=== PATIENT | male | born 2005 | race Caucasian/White ===

== ENCOUNTER 2024-04-22 14:33 | Emergency (ER) | payer SELFPAY ==
[2024-04-22 14:34] VITALS: BP 144/85; PULSE 104; RESP 16; TEMP 36.1; O2SAT 100; BMI 25.1
--- NOTE | 2024-04-22 14:59 | EX.ED.UPPERE ---
HPI History of Present Illness HPI Narrative: 18-year-old male fell yesterday off a ladder about 2 feet injuring his left shoulder and left upper anterior chest wall. No LOC. No head injury. No neck or back injury. Denies other complaints. Today was seen at the chiropractor and referred to the emergency department. Chief Complaint: Dislocation Informant: patient and family Occured/Mechanism Mechanism/Context: Yes injury and Yes blunt trauma Onset/Context/Timing Onset: Yesterday Context: Sudden Onset Timing: Continuous Quality of Pain: Dull and Aching Location: Left shoulder and left upper chest wall. Current Severity: Moderate Maximum Severity: Moderate Associated Symptoms Associated Symptoms: Negative for Parasthesia, Weakness or Loss of Funtion Narrative Narrative: Healthy 18-year-old male no seen past medical history. [id number]. Was on a ladder yesterday fell injuring his left shoulder and left upper rib cage. Was seen at a chiropractor and referred to the ER. Prior similar symptoms: No Recent Illness/Hospitalization: No PFSH PFSH Medical History no medical history no medical history Home Medications ?Medication ?Instructions ?Recorded ?Last Taken ?Type NK 04/22/24 Unknown History Allergy/AdvReac Type Severity Reaction Status Date / Time No Known Allergies Allergy Verified 04/22/24 14:34 Surgical History (Updated 04/22/24 @ 15:05 by Lisbeth Duarte) History of appendectomy ROS ROS ED ROS Narrative Denies recent illness. Constitutional Constitutional ED: Denies chills or fever(s) Eyes Eyes: Denies blurry vision ENT ENT ED: Denies ear pain Cardiovascular Cardiovascular: Denies chest pain Respiratory/Chest Respiratory/Chest: Denies cough or dyspnea Gastrointestinal Gastrointestinal: Denies abdominal pain Genitourinary Genitourinary ED: Denies dysuria or hematuria Musculoskeletal Musculoskeletal: Denies back pain or myalgias Integumentary Denies abscess or Abrasions Neurologic Neurologic: Denies headache(s) Psychiatric Psychiatric: Denies anxiety Endocrine Endocrinology: Denies cold intolerance Hematologic/Lymphatic Hematologic/Lymphatic: Denies easy bleeding, easy bruising or lymphadenopathy Allergic/Immunologic Allergic/Immunologic ED: Denies mouth swelling, tongue swelling or urticaria EXAM Physical Exam Narrative Exam Narrative: 18-year-old male vital signs stable afebrile. No acute distress. Sitting upright in bed. Family at bedside. H EENT exam pupils round react light. No facial trauma. No scalp or head trauma. Nontender no hematoma. Neck C-spine nontender. Trachea midline. Normal range of motion. Back and spine nontender. No bruising. Lungs clear to auscultation bilaterally. Heart regular rhythm no murmur. Rate about 100. Left upper anterior chest wall tenderness with clavicular tenderness and left shoulder tenderness. No subcu air. No bruising. No bony crepitus. Right chest wall and right collarbone completely nontender right shoulder normal range of motion. Abdomen soft nontender. No peritoneal signs. No bruising. Pelvic girdle intact. Right upper extremity both lower extremities are nontender normal range of motion. No deformity. Left shoulder mild tenderness. However he has full flexion extension of left shoulder internal and external rotation. He can lift his left arm over his head. Normal inspector returned materials strength. Normal radial pulse. Hand, wrist, forearm and elbow are all completely nontender. Distal humerus is nontender. Neurologically is awake and alert. GCS of 15. Const Vital Signs: 04/22/24 14:34 Temperature 97 F L Temperature Source Temporal Pulse Rate 104 H Respiratory Rate 16 Blood Pressure 144/85 H Blood Pressure Mean 104 Pulse Ox 100 Oxygen Delivery Method Room Air Positive well nourished and well developed; Negative for obese, cachectic, contractures or unkempt General Appearance ED: well developed and NAD; Negative for unkempt, cachectic, contractures, cyanotic or diaphoretic Nutritional Appearance: Negative for cachectic or obese HEENT Reports moist mucous membranes normocephalic and atraumatic; Negative for trauma or tenderness Eyes PERRL and EOMs intact bilaterally Neck full ROM and supple General: Negative for tenderness Lymph Lymphatic: Negative for other Chest Wall inspection of chest normal; Negative for palpation of chest normal Chest Narrative: Tender left chest wall and mild tenderness to the proximal collarbone. Resp normal respiratory effort and clear to auscultation bilaterally Auscultation: Negative for rales, rhonchi, wheezes, diminished lung sounds or other Cardio regular rate, regular rhythm, S1 normal heart sound, S2 normal heart sound and no murmurs Rate: Negative for bradycardia or tachycardic Rhythm: Negative for abnormal rhythm GI non-tender, non-distended and no masses Inspection: Negative for abdominal distention Auscultation: normoactive bowel sounds Palpation: soft; Negative for tender, guarding or rebound tenderness present Back/Spine no CVA tenderness General Back: Negative for CVA tenderness Cervical Spine: Negative for cervical spine tenderness Thoracic Spine / Upper Back: Negative for thoracic spinal tenderness Lumbar Spine / Lower Back: Negative for lumbar spinal tenderness Extremity full ROM; Negative for normal to inspection Extremity Narrative: Mild tenderness left shoulder. No deformity. No swelling. Normal range of motion. Normal internal/external rotation. Can lift his left hand over his shoulder. Over his head. 5/5 inspector returned materials strength. Hand and wrist nontender. Forearm nontender. Distal humerus and elbow nontender. Left hand neurovascularly intact with touch sensation. General Extremety ED: Negative for edema General Extremity: Negative for edema Neuro oriented x3, CN's II-XII intact bilaterally, moves all extremities, no focal motor deficits and no sensory deficits noted Sensorium / Orientation: alert, oriented to person, oriented to place and oriented to time; Negative for orientation impaired, lethargic or stuporous Motor Exam: strength 5/5 throughout Psych mental status grossly normal Appearance: Negative for unkempt Attitude: No agitated Mood & Affect: Negative for depressed, anxious or tearful Skin General Skin Exam: Negative for petechiae Lesions: no lesions Rashes: no rashes Trauma: no lacerations or abrasions; Negative for abrasion, laceration or puncture MDM MDM MDM Narrative Medical decision making narrative: 18-year-old male fell yesterday from a ladder 2 feet complaining of left shoulder and collarbone discomfort. Left shoulder and chest x-ray will be obtained. He was offered but did not not want a thing for pain. He did bring x-rays with him from the chiropractor which we will load and look at. Repeat exam at 4:10 PM. Patient doing well. He has discomfort in the proximal clavicle medially but there is no signs of dislocation. Films are read as negative both by myself and the radiologist. I discussed CAT scan with he and his family for further evaluation but he deferred at this time. He is currently uninsured and was trying to prevent that cost. Left hand remains neurovascularly intact with good inspector returned materials strength, sensation and radial pulse. Will be discharged to home. Ice to the area. Motrin and Tylenol and return if not improving. History & Record Review Discussion w/independent historian: Patient and Family Discharge Plan Triage Chief Complaint: Dislocation ED Provider: Vern Arora Dx/Rx/DC Orders Clinical Impression: Fall, Contusion of left shoulder, Chest wall contusion Instructions: ED Chest Wall Contusion Prescriptions: No Action NK Primary Care Provider: Care Physician,No Primary Referrals: Ray Walker MD [Med Staff - [employer]] - 1 Week if not improving Care Physician,No Primary [Primary Care Provider] - Activity Restrictions/Additional Instructions: The x-rays of both your left shoulder and chest are normal. There is no signs of any broken bones or dislocations. Ice to your shoulder and your chest wall where it sore. Motrin for pain and inflammation and alternate Tylenol for pain. This should progressively get better. If it is not getting better follow-up for further evaluation and possible CAT scan. Print Language: Tamazight Disposition Disposition: Home, Self Care
--- NOTE | 2024-04-22 15:35 | RAD_ITS ---
PROCEDURE: SHOULDER MIN 2 VIEWS REASON FOR EXAM: Left-sided shoulder pain and left rib pain following a fall. TECHNIQUE: Four views of the left shoulder were obtained. COMPARISON: None. FINDINGS: LEFT SHOULDER: No fracture. No suspicious bone lesion. Normal alignment of the acromioclavicular and glenohumeral joints. Soft tissues are unremarkable. RAD/Shoulder min 2 Views IMPRESSION: No acute abnormality is seen. Reading Location: [facility]
--- NOTE | 2024-04-22 15:35 | RAD_ITS ---
PROCEDURE: CHEST PA AND LATERAL REASON FOR EXAM: Left-sided chest wall and clavicular pain following a fall. TECHNIQUE: Frontal and lateral views of the chest. COMPARISON: None. FINDINGS: The heart is nonenlarged. The lungs are clear. The bones are unremarkable. RAD/Chest PA and Lateral IMPRESSION: Normal examination. Reading Location: [id number]
[2024-04-22] MEDS: Ibuprofen 400 MG Tablet 800 MG PO (16:21)
== END 2024-04-22 16:24 | disposition home or self-care (01) ==
PROVIDERS: Emergency Provider Emergency Medicine; Visit Provider Emergency Medicine
DX: S40.012A Contusion of left shoulder, initial encounter (principal); S20.212A Contusion of left front wall of thorax, initial encounter; W11.XXXA Fall on and from ladder, initial encounter
CPT/HCPCS: 71046; 73030; 99282